=== PATIENT | male | born 2005 | race African-American/Black ===

== ENCOUNTER 2024-02-25 02:53 | Emergency (ER) | payer MEDICAID ==
[~2024-02-25] VITALS: Ht 188 cm; Wt 85.4 kg
[2024-02-25 03:07] VITALS: O2SAT 99
[2024-02-25 03:42] LABS: CHLORIDE 105 mEq/L (98-107); SODIUM 140 mEq/L (136-145)
[2024-02-25 03:43] LABS: CALCIUM 10.3 mg/dL (8.7-10.4); CARBON DIOXIDE 23 mEq/L (21-32)
[2024-02-25] MEDS: ONDANSETRON HCL 4MG TABLET PO ONE (03:45)
[2024-02-25 03:48] LABS: CREATININE 1.2 mg/dL (0.6-1.3); GLUCOSE 95 mg/dL (70-105); UREA NITROGEN BLOOD 12 mg/dL (9-23)
[2024-02-25 03:50] LABS: ALANINE AMINOTRANSFERASE 20 IU/L (10-49); ALBUMIN 5.1 g/dL (3.2-4.8); ASPARTATE AMINOTRANSFERASE 22 IU/L (<34); BILIRUBIN DIRECT 0.3 mg/dL (<=3.0)
[2024-02-25 03:51] LABS: BILIRUBIN TOTAL 1.1 mg/dL (0.1-1.0); PROTEIN TOTAL 8.9 g/dL (6.0-8.3)
[2024-02-25] MEDS: MAGNESIUM/ALUMINUM HYDROXIDE/SIMETHICONE 30ML UDC PO STA (04:09)
[2024-02-25 04:18] LABS: CLARITY URINE CLEAR (CLEAR); COLOR URINE DARK YELLOW (YELLOW); GLUCOSE URINE NEGATIVE (NEGATIVE); KETONES URINE 2+ (NEGATIVE); LEUKOCYTE ESTERASE URINE NEGATIVE (NEGATIVE); NITRITE URINE NEGATIVE (NEGATIVE); OCCULT BLOOD URINE NEGATIVE (NEGATIVE); PROTEIN URINE 1+ (NEGATIVE); SPECIFIC GRAVITY URINE 1.036 (1.005-1.030)
[2024-02-25 04:22] LABS: HEMATOCRIT. 49.7 % (42.0-52.0); HEMOGLOBIN. 17.1 g/dL (14.0-18.0); MEAN CORPUSCULAR HEMOGLOBIN 29.7 pg (28.0-32.0); MEAN CORPUSCULAR HGB CONC 34.5 g/dL (31.0-37.0); MEAN CORPUSCULAR VOLUME 86.1 fL (80.0-94.0); MEAN PLATELET VOLUME 8.1 fl (7.4-10.4); PLATELET 259 x1000/uL (130-400); RED BLOOD CELL COUNT 5.77 mill/uL (4.7-6.1); RED CELL DISTRIBUTION WIDTH 13.3 % (11.6-14.6); WHITE BLOOD COUNT 9.9 x1000/uL (4.5-11.0)
[2024-02-25 04:23] LABS: DIFFERENTIAL COMMENT 1
[2024-02-25] MEDS ORDERED: OMEP40CA20 MT (05:21)
[2024-02-25] MEDS ORDERED: ONDA4TAB50 MT (05:21)
[2024-02-25 06:10] VITALS: BP 126/73; PULSE 79; RESP 18; TEMP 37.16964; O2SAT 99
[2024-02-25 06:57] LABS: MUCUS URINE 2+ /lpf (NONE/TRACE)
[2024-02-25 07:04] LABS: BACTERIA URINE 1+; RBC URINE 0-2 /hpf (0-2); SQUAMOUS EPITHELIAL CELL URINE NONE SEEN /lpf (RARE/1+); YEAST URINE NONE SEEN
[2024-02-25 09:01] LABS: PLATELET ESTIMATE NORMAL
== END 2024-02-25 06:15 | disposition home or self-care (01) ==
LOC: ER 02:53
DX: R10.33 Periumbilical pain (principal); Z79.899 Other long term (current) drug therapy
CPT/HCPCS: 99284; 74176; 80076; 80048; 81003; 83690; 85025; 36415; Q0162

== ENCOUNTER 2024-06-30 14:01 | Emergency (ER) | payer SELFPAY ==
[~2024-06-30] VITALS: Ht 188 cm; Wt 87.0 kg
[~2024-06-30 14:01] MED LIST: OMEP40CA20 MT; ONDA4TAB50 MT
[2024-06-30 14:04] VITALS: TEMP 36.7; O2SAT 99
[2024-06-30 15:05] VITALS: TEMP 98.1
[2024-06-30] MEDS: MAGNESIUM/ALUMINUM HYDROXIDE/SIMETHICONE 30ML UDC PO STA (15:05)
[2024-06-30] MEDS: ONDANSETRON 4MG ODT PO STA (15:05)
[2024-06-30] MEDS: ACETAMINOPHEN 325MG TABLET PO STA (15:05)
[2024-06-30 15:06] VITALS: BP 125/69; PULSE 52; RESP 16
[2024-06-30] MEDS: KETOROLAC 30MG/ML VIAL IM STA (15:06)
[2024-06-30] MEDS ORDERED: ONDA-239 PO (15:30)
[2024-06-30 15:44] LABS: COLOR URINE YELLOW (YELLOW); GLUCOSE URINE NEGATIVE (NEGATIVE); KETONES URINE NEGATIVE (NEGATIVE); LEUKOCYTE ESTERASE URINE NEGATIVE (NEGATIVE); NITRITE URINE NEGATIVE (NEGATIVE); OCCULT BLOOD URINE NEGATIVE (NEGATIVE); PH URINE 6.5 (4.5-8.0); PROTEIN URINE NEGATIVE (NEGATIVE); SPECIFIC GRAVITY URINE 1.027 (1.005-1.030)
[2024-06-30 16:27] LABS: CLARITY URINE CLEAR (CLEAR)
[2024-06-30 16:28] LABS: BACTERIA URINE NONE SEEN; RBC URINE NONE SEEN /hpf (0-2); SQUAMOUS EPITHELIAL CELL URINE NONE SEEN /lpf (RARE/1+); WBC URINE 0-2 /hpf (0-2)
== END 2024-06-30 16:02 | disposition home or self-care (01) ==
LOC: ER 14:20
DX: K52.9 Noninfective gastroenteritis and colitis, unspecified (principal); Z79.899 Other long term (current) drug therapy
CPT/HCPCS: 99284; 81003; 96372; J1885; Q0162

== ENCOUNTER 2024-10-14 11:44 | Emergency (ER) | payer SELFPAY ==
[~2024-10-14] VITALS: Ht 188 cm; Wt 89.0 kg
[~2024-10-14 11:44] MED LIST changes: +ONDA-239 PO
[2024-10-14 11:49] VITALS: BP 123/63; TEMP 36.9; O2SAT 100
[2024-10-14 11:50] VITALS: PULSE 68; RESP 18; O2SAT 98
[2024-10-14] MEDS ORDERED: TOBR5DRO47 LEFTEYE (12:14)
== END 2024-10-14 12:36 | disposition home or self-care (01) ==
LOC: ER 11:44
DX: H57.89 Other specified disorders of eye and adnexa (principal); Z79.899 Other long term (current) drug therapy
CPT/HCPCS: 99283

== ENCOUNTER 2024-10-16 07:31 | Emergency (ER) | payer SELFPAY ==
[~2024-10-16] VITALS: Ht 188 cm; Wt 88.0 kg
[~2024-10-16 07:31] MED LIST changes: +TOBR5DRO47 LEFTEYE
[2024-10-16 07:37] VITALS: TEMP 36.8; O2SAT 100
[2024-10-16] MEDS: TETANUS, DIPHTHERIA, PERTUSSIS VAC/PF 0.5ML (>10YR OLD) IM ONE (08:10)
[2024-10-16] MEDS: IBUPROFEN 600MG TABLET PO ONE (08:10)
[2024-10-16] MEDS ORDERED: KETO10TA2 MT (08:53)
[2024-10-16 09:17] VITALS: BP 133/73; PULSE 60; RESP 16; O2SAT 100
== END 2024-10-16 09:27 | disposition home or self-care (01) ==
LOC: ER 07:31
DX: S92.254A Nondisplaced fracture of navicular [scaphoid] of right foot, initial encounter for closed fracture (principal); S61.412A Laceration without foreign body of left hand, initial encounter; W18.39XA Other fall on same level, initial encounter; Y93.89 Activity, other specified; Y92.89 Other specified places as the place of occurrence of the external cause; Y99.8 Other external cause status
CPT/HCPCS: 73110; 73130; 90715; 12002; 29125; 99284; Z7610 ×2